=== PATIENT | female | born 1965 | race Caucasian/White ===

== ENCOUNTER → 2022-08-29 | Day surgery (SDC) | payer BC ==
--- NOTE | 2022-08-29 13:02 | RAD REPORT ---
EXAM DESCRIPTION: US - Breast Core BX w/US Guidance - 08/29/2022 10:47 am CLINICAL HISTORY: N63.10lateral right breast mass COMPARISON: Mammogram and ultrasound 08/21/2022 TECHNIQUE: The patient presents for ultrasound-guided biopsy of a previously detailed 5-6 mm lateral right breast mass. The ultrasound-guided core biopsy procedure, risks and alternatives were discussed with the patient i n detail. After answering all questions, both oral and written consent were obtained. Time out proced ure was performed. The patient had no contraindicated allergy or medication history. Patient was off 81 milligram aspirin therapy for 5 days or more. Preliminary imaging identified the a 5-6 mm hypoechoic right breast mass lateral 9 o'clock position. This is the correlate to the mammogram and ultrasound findings. The right breast was prepped and draped in the usual sterile fashion. From a(n) inferior approach, sk in and deeper tissues were anesthetized with 1% lidocaine. Under direct sonographic visualization a 1 4 gauge vacuum assisted core biopsy needle was advanced and placed at the margin of the mass. There w ere a total of 4 core biopsies obtained under direct sonographic guidance. The small mass became dist orted over the course of the procedure. There is a minimal amount of bleeding at the site that furthe r obscure the margins of this small mass. After the IV core biopsies were performed, follow-up images showed no clearly defined mass. This would support that the mass has been adequately sampled. At the conclusion of the procedure a localization clip was placed under sonographic guidance. No hematoma was seen and there is no progression of the minimal bleeding at the biopsy site. Hemostas is was obtained at the skin surface. Sterile bandage was placed over the puncture site. Post procedure care and precaution instructions were given to the patient. IMPRESSION: 1. Ultrasound-guided core biopsy was performed of the lateral right breast mass. All obt ained material was given to pathology for histologic assessment. 2. Post biopsy localization clip was placed under ultrasound guidance.
== END ==
LOC: DS 08:00
PROVIDERS: ATTEND Obstetrics & Gynecology
DX: C50.911 Malignant neoplasm of unspecified site of right female breast (principal); Z17.0 Estrogen receptor positive status [ER+]
CPT/HCPCS: 19083; 88305

== ENCOUNTER 2022-08-30 18:48 | Emergency (ER) | payer BC ==
--- OUTSIDE RECORDS SUMMARY | 2022-08-30 18:50 | XMS REPORT | Continuity of Care Document ---
:1965 Author Organization [facility] t Address [address] [place] [address] [address]. [address] [place] [address] Care Team Providers Name Role Phone Nando Craig MD Primary Care Physician Luke Truong Attending Clinician Unavailable Lab, Adc Fam Pob I Attending Clinician Unavailable Perla Flores Attending Clinician PERLA ASH Attending Clinician Unavailable KNOW, DOES_NOT Admitting Clinician Unavailable Payers Payer Name Policy Type Policy Number Effective Date Expiration Date S ource Problems Condition Condition Condition Status Onset Resolution Last Treating Co mments Source Name Details Category Date Date Treatment Clinician Date No known No known Disease Metho di active active st problems problems Hospit a l Allergies, Adverse Reactions, Alerts Allergy Allergy Status Severity Reaction(s) Onset Inactive Treating Comm ents Source Name Type Date Date Clinician No Known DA Active [facility] [place] No Known DA Active [facility] NO KNOWN Drug Active [facility] ALLERGIE [facility] [place] [facility] [place] Social History Social Habit Start Date Stop Date Quantity Comments Source Exposure to Yes [facility]-CoV-2 [facility] (event) Branch Tobacco use and 2019-03-11 2019-03-11 Smokeless tobacco [facility] exposure 00:00:00 00:00:00 non-user Sex Assigned [birth year] [facility] 00:00:00 00:00:00 Smoking Status Start Date Stop Date Source Unknown if ever smoked [facility] Never smoked tobacco [facility] Medications Ordered Filled Start Stop Current Ordering Indication Dosage Frequency Signature Comments Components Source Medication Medication Date Date Medication? Clinician (SIG) Name Name omega Yes Methodi 3-dha-epa-f 03-11 st emani oil 19:13: Hospita (FISH OIL) 58 l 1,000 mg (120 mg-180 mg) capsule esomeprazol Yes Method i e (NexIUM 03-11 24HR) 20 MG 19:13: Hospit a capsule 58 l metoprolol Yes Methodi loya-hydrochl 03-11 st orothiaz 19:13: Hospita 50-12.5 mg 58 l tablet extended release 24 hr BABY Yes Methodi ASPIRIN 03-11 st ORAL 19:13: Hospita 58 l norethindro Yes 5mg QD Take 5 mg M ethodi ne 7-[address] (AYGESTIN) 00:00: daily. Hospi ta 5 mg tablet 00 l rosuvastati Yes 10mg QD Take 10 mg Methodi n (CRESTOR) 7-[address] 10 MG 00:00: daily. Hospita tablet 00 l Procedures This patient has no known procedures. Plan of Care Planned Activity Planned Date Details Comments Source Future Scheduled 2022-08-30 COVID-19 VACCINE (#1) [facility] Test 18:50:19 [code = COVID-19 VACCINE (#1)] Future Scheduled 2022-08-30 Screening for [facility] Test 18:50:19 malignant neoplasm of cervix (procedure) [code = 343962578] Future Scheduled 2022-08-30 BREAST CANCER [facility] Test 18:50:19 SCREENING [code = BREAST CANCER SCREENING] Future Scheduled 2022-08-30 COLONOSCOPY SCREENING [facility] Test 18:50:19 [code = COLONOSCOPY SCREENING] Future Scheduled 2022-08-30 SHINGLES VACCINES (1 [facility] Test 18:50:19 of 2) [code = SHINGLES VACCINES (1 of 2)] Future Scheduled 2022-08-30 INFLUENZA VACCINE [facility] Test 18:50:19 [code = INFLUENZA VACCINE] Encounters Start End Encounter Admission Attending Care Care Encounter Source Date/Time Date/Time Type Type Clinicians Facility Department ID 2021-03-02 2021-03-02 [id number] [facility] 11:40:00 11:40:00 Mass, 77 [facility] 2020-04-20 2020-04-20 Laboratory Lab, [facility] Fam Pob I [facility] [id number] Univers 08:31:50 08:51:50 Only Perla Ash [facility] [id number] itbibi [facility] [id number] Day[place] as Professio [phone] Az dical nal [address] [place] [address] [facility] 2020-04-20 2020-04-20 Laboratory Lab, [facility] [id number] 08:31:50 08:51:50 Only [facility] Pob I Health [id number] [place] [id number] Professio [phone] nal [address] One 2020-04-20 2020-04-20 Outpatient R NILSA [facility] [id number] Univers 08:40:00 08:40:00 PERLA morrison [facility] Results Test Description Test Time Test Comments Results Result Comments Source ENDOMETRIUM,BIOPSY 2021-03-04 10:33:00 Test Item Value Reference Range Interpretation Comme nts ENDOMETRIUM,BIOPSY RUN DATE: (test code = 03/04/21 [facility] y PAGE 1 RUN TIME: 1935 Specimen Inquiry RUN USER: INTERFACE ENDOMETBX) PATIENT: DEBI SWAIN [facility] [id number] AGE/SX: 55/F ROOM: RE03/02/21REG DR: Luke Truong : 65 BED: DIS: STATUS: [facility] TLOC: SPEC #: [id number] RECD: 1 [facility] #: [id number] JUAN MANUEL: 03/02/21- SUBM DR: Luke Truong MD ENTERED: 0 03/02/21-144 SP TYPE: ENDOMETBX OTHR DR: ORDERED: LEVEL IV CODES: [id number] - ENDOMETRIUM, NO PROCEDURES : LEVEL IV (Incomplete) TISSUES: ENDOMETRIUM, NOS - ENDOMETRIAL CURETTINGS AND POLYP CLINICA L HISTORY 55 year old, abnormal uterine bleeding and polyp (wpd) FINAL DIAGNOSIS Endometrial curett ings and polyp: - polypoid endometrium with progestational changes - necrotic endometrium with pr ogestational changes CPT: 21165 [facility]/wpd GROSS DESCRIPTION ANATOMIC SOURCE OF TISSUE (per Requisition): Endometrial curettings and polyp The specimen is received in a formalin-filled container, l abeled with the patient's name and designated "endometrial curettings and polyp". The specimen consist s is a 4.0 cm aggregate of multiple rosa-pink to brown-hernandez soft tissues. The tissues are entirely submitted in A1 and A2. /wp d 03/02/21 Signed TrishaGilneha Womack 03/04/21 1033 END OF REPORT BASIC METABOLIC [id number] 11:19:00 Test Item Value Reference Range Interpretation Comments SODIUM (test code = NA) 143 mEq/L 135-145 N POTASSIUM (test code = K) 5.0 mEq/L 3.5-5.0 N CHLORIDE (test code = CL) 107 mEq/L 100-115 N CARBON DIOXIDE (test code = CO2) 27 mEq/L 22-31 N ANION GAP (test code = GAP) 14.20 10-20 N GLUCOSE (test code = GLU) 90 mg/dL 65-110 N BLOOD UREA NITROGEN (test code = 14 mg/dL 7-18 N BUN) GLOMERULAR FILTRATION RATE (test 65 ml/min >60 N code = GFR) CREATININE (test code = CREAT) 0.9 mg/dL 0.5-1.0 N CALCIUM (test code = CA) 8.6 mg/dL 8.4-10.2 N HCG SERUM [id number] 11:17:00 Test Item Value Reference Range Interpretation Comments HCG SERUM QUAL (test code = HCGQL) NEGATIVE HGB [id number] 11:07:00 Test Item Value Reference Range Interpretation Comments HEMOGLOBIN (test code = HGB) 15.0 g/dL 10.1-13.8 H HEMATOCRIT (test code = HCT) 44.5 % 32.5-41.8 H
[2022-08-30] MEDS ORDERED: KETOROLAC 30 MG/ML INJ ONE (20:21)
[2022-08-30 20:49] LABS: Absolute Lymphocytes (CBC) 2.2 K/uL (0.7-4.9); Hematocrit 40.9 % (36.0-45.0); Lymphocytes % 21.7 % (15.3-44.8); MCV 88.2 fL (80-100); MPV 8.9 fL (7.6-11.3); RBC Red Blood Cell Count 4.64 M/uL (3.86-4.86)
--- NOTE | 2022-08-30 20:52 | RAD REPORT ---
EXAM DESCRIPTION: RAD - Chest Single View - 08/30/2022 8:21 pm CLINICAL HISTORY: CHEST PAIN Chest pain. COMPARISON: No comparisons FINDINGS: Portable technique limits examination quality. The lungs are emphysematous but grossly clear. The heart is normal in size. No displaced fractures. IMPRESSION: No acute intrathoracic process suspected.
[2022-08-30 21:03] LABS: Potassium 3.6 mmol/L (3.5-5.1); Troponin High Sensitivity 5.8 pg/mL (<58.9)
--- NOTE | 2022-08-30 23:21 | ER ---
Nurse's Notes [facility] Name: Fabiana Mckenzie Age: 56 yrs Sex: Female : 1965 Arrival Date: 08/30/2022 Time: 18:48 Bed 2 Private MD: Diagnosis: Chest pain, unspecified Presentation: 08/30 19:16 Chief complaint: Patient states: It hurts to breath and it hurts on the side of my left kd3 breast. It started earlier today around lunchtime. It hurt a lot when the doctor was pushing on it. Coronavirus screen: Vaccine status: Patient reports receiving the 2nd dose of the covid vaccine. Ebola Screen: No symptoms or risks identified at this time. Initial Sepsis Screen: Does the patient meet any 2 criteria? No. Patient's initial sepsis screen is negative. Does the patient have a suspected source of infection? No. Patient's initial sepsis screen is negative. Risk Assessment: Do you want to hurt yourself or someone else? Patient reports no desire to harm self or others. Onset of symptoms was August 30, 2022. 19:16 Method Of Arrival: Ambulatory kd3 19:16 Acuity: KRYSTEN 3 kd3 Triage Assessment: 19:19 General: Appears uncomfortable, Behavior is calm, cooperative. Pain: Complains of pain kd3 in left lateral posterior chest and left lateral anterior chest. Neuro: Level of Consciousness is awake, alert, obeys commands, Oriented to person, place, time, situation. Cardiovascular: Patient's skin is warm and dry. Historical: - Allergies: 19:19 No Known Allergies; kd3 - Immunization history:: Adult Immunizations up to date. - Social history:: Smoking status: Patient denies any tobacco usage or history of. - Family history:: not pertinent. Screenin:[address] [facility] ED Fall Risk Assessment (Adult) History of falling in the last 3 months, mb9 including since admission No falls in past 3 months (0 pts) Confusion or Disorientation No (0 pts) Intoxicated or Sedated No (0 pts) Impaired Gait No (0 pts) Mobility Assist Device Used No (0 pt) Altered Elimination No (0 pt) Score/Fall Risk Level 0 - 2 = Low Risk Oriented to surroundings, Maintained a safe environment, Educated pt \T\ family on fall prevention, incl call for assistance when getting out of bed. Abuse screen: Denies threats or abuse. Nutritional screening: No deficits noted. Tuberculosis screening: No symptoms or risk factors identified. Assessment: 20:35 General: Appears uncomfortable, Behavior is calm, cooperative, appropriate for age. mb9 Pain: Complains of pain in chest Pain radiates to left arm and left shoulder Pain currently is 7 out of 10 on a pain scale. Quality of pain is described as pressure, Pain began this morning Aggravated by increased activity, repositioning, weight bearing. Neuro: Garner Agitation-Sedation Scale (RASS): 0 - Alert and Calm Level of Consciousness is awake, alert, obeys commands, Oriented to person, place, time, situation, Appropriate for age. Cardiovascular: Heart tones S1 S2 present Capillary refill < 3 seconds is brisk Patient's skin is warm and dry. Rhythm is regular. Respiratory: Airway is patent Respiratory effort is even, unlabored, Respiratory pattern is regular, symmetrical. GI: Abdomen is flat, non-distended, Bowel sounds present X 4 quads. Abd is soft and non tender X 4 quads. : No signs and/or symptoms were reported regarding the genitourinary system. EENT: No signs and/or symptoms were reported regarding the EENT system. Derm: Skin is pink, warm \T\ dry. Musculoskeletal: Range of motion: intact in all extremities. 21:19 Reassessment: No changes from previously documented assessment. Patient and/or family mb9 updated on plan of care and expected duration. Pain level reassessed. Patient is alert, oriented x 3, equal unlabored respirations, skin warm/dry/pink. Patient states feeling better. Patient states symptoms have improved. 22:05 Reassessment: No changes from previously documented assessment. Patient and/or family mb9 updated on plan of care and expected duration. Pain level reassessed. Patient is alert, oriented x 3, equal unlabored respirations, skin warm/dry/pink. Patient states feeling better. Patient states symptoms have improved. Vital Signs: 19:16 BP 163 / 88; Pulse 96; Resp 18; Temp 97.7(TE); Pulse Ox 100% ; Weight 72.57 kg; Height kd3 5 ft. 2 in. (157.48 cm); Pain 7/10; 20:37 BP 156 / 86; Pulse 87; Resp 22; Pulse Ox 100% on R/A; Pain 7/10; mb9 21:52 BP 140 / 75; Pulse 76; Resp 20; Pulse Ox 97% on R/A; mb9 23:04 BP 144 / 86; Pulse 76; Resp 16; Pulse Ox 98% on R/A; mb9 23:30 BP 141 / 80; Pulse 77; Resp 18; Pulse Ox 95% on R/A; Pain 0/10; kl 19:16 Body Mass Index 29.26 (72.57 kg, 157.48 cm) kd3 ED Course: 18:48 Patient arrived in ED. am2 19:09 Rai Garcia MD is Attending Physician. bs3 19:19 Triage completed. kd3 19:19 Arm band placed on left wrist. kd3 20:00 Placed in gown. Bed in low position. Call light in reach. Side rails up X 1. Client mb9 placed on continuous cardiac and pulse oximetry monitoring. NIBP monitoring applied. monitoring manager on. 20:18 Melina Tello, RN is Primary Nurse. jh5 20:18 Marysol Douglas, CHILO is Primary Nurse. mb9 20:23 XRAY Chest (1 view) In Process Unspecified. EDMS 20:25 Inserted saline lock: 20 gauge in right forearm, using aseptic technique. Blood mb9 collected. 20:25 EKG done, by ED staff, reviewed by Rai Garcia MD. mb9 20:35 Basic Metabolic Panel Sent. mb9 20:35 CBC with Diff Sent. mb9 20:35 Troponin HS Sent. mb9 20:38 No provider procedures requiring assistance completed. mb9 23:31 IV discontinued, intact, bleeding controlled, No redness/swelling at site. Pressure kl dressing applied. 23:31 Patient maintains SpO2 saturation greater than 95% on room air. kl Administered Medications: 20:35 Drug: Ketorolac 15 mg Route: IVP; Site: right forearm; mb9 22:38 Follow up: Response: Pain is decreased mb9 Medication: 20:38 VIS not applicable for this client. mb9 Outcome: 23:20 Discharge ordered by . bs3 23:31 Discharged to home ambulatory, with family. kl 23:31 Condition: stable 23:31 Discharge instructions given to patient, Instructed on discharge instructions, follow up and referral plans. Demonstrated understanding of instructions, follow-up care. 23:31 Patient left the ED. kl Signatures: Dispatcher [employer] EDEliane Dolan, RN RN Radha Jason am2 Melina Tello RN RN jh5 Aylin Gomez RN RN kd3 Rai Garcia MD MD bs3 Marysol Douglash, RN RN mb9
--- NOTE | 2022-08-30 23:21 | EDPHYS ---
Physician Documentation [facility] Name: Fabiana Mckenzie Age: 56 yrs Sex: Female : 1965 Arrival Date: 08/30/2022 Time: 18:48 Bed 2 Private MD: ED Physician Rai Garcia HPI: 08/30 19:20 This 56 yrs old Female presents to ER via Ambulatory with complaints of Chest bs3 Pain. 19:20 She has a history of hypertension presents with left-sided sharp chest pain it does bs3 radiate toward her left neck she does not have associated nausea vomiting sweating no numbness tingling or weakness in her extremities she has not taken anything for it she notes that it is worsened with position and taking a deep breath but does not have associated shortness of breath she notes that she did get a right-sided breast biopsy yesterday she has never had this pain before. Historical: - Allergies: 19:19 No Known Allergies; kd3 - Immunization history:: Adult Immunizations up to date. - Social history:: Smoking status: Patient denies any tobacco usage or history of. - Family history:: not pertinent. ROS: 19:22 Constitutional: Negative for fever, chills Eyes: Negative for injury, pain, redness, bs3 and discharge, ENT: Negative for injury, pain, and discharge, Respiratory: Negative for shortness of breath, cough, wheezing Abdomen/GI: Negative for abdominal pain, nausea, vomiting, diarrhea Back: Negative for injury and pain, : Negative for injury, bleeding, discharge, and swelling, MS/Extremity: Negative for injury and deformity, Skin: Negative for injury, rash, and discoloration, Neuro: Negative for headache, weakness, numbness, tingling, and seizure, Psych: Negative for depression, anxiety, suicide ideation, homicidal ideation, and hallucinations. Exam: 19:22 Constitutional: This is a well developed, well nourished patient who is awake, alert, bs3 and in no acute distress. Head/Face: Normocephalic, atraumatic. Eyes: Pupils equal round and reactive to light, extra-ocular motions intact. Lids and lashes normal. ENT: mmm, no posterior phyarngeal erythema Neck: Trachea midline, no thyromegaly, no neck stiffness, no bruit, no tenderness to palpation Chest/axilla: Normal chest wall appearance and motion. Left-sided anterior chest wall tenderness, no lesions are appreciated. Cardiovascular: Regular rate and rhythm with a normal S1 and S2. symmetric pulses in upper extremities Respiratory: Lungs have equal breath sounds bilaterally, clear to auscultation, no respiratory distress Abdomen/GI: Soft, non-tender, no rebound or guarding Skin: Warm, dry with normal turgor. Normal color with no rashes, no lesions, and no evidence of cellulitis. MS/ Extremity: Pulses equal, no cyanosis. Neurovascular intact. Full, normal range of motion. Neuro: Awake and alert, GCS 15, oriented to person, place, time, and situation. Cranial nerves II-XII grossly intact. Motor strength 5/5 in all extremities. Sensory grossly intact. Vital Signs: 19:16 BP 163 / 88; Pulse 96; Resp 18; Temp 97.7(TE); Pulse Ox 100% ; Weight 72.57 kg; Height kd3 5 ft. 2 in. (157.48 cm); Pain 7/10; 20:37 BP 156 / 86; Pulse 87; Resp 22; Pulse Ox 100% on R/A; Pain 7/10; mb9 21:52 BP 140 / 75; Pulse 76; Resp 20; Pulse Ox 97% on R/A; mb9 23:04 BP 144 / 86; Pulse 76; Resp 16; Pulse Ox 98% on R/A; mb9 23:30 BP 141 / 80; Pulse 77; Resp 18; Pulse Ox 95% on R/A; Pain 0/10; kl 19:16 Body Mass Index 29.26 (72.57 kg, 157.48 cm) kd3 MDM: 19:09 Patient medically screened. bs3 19:23 Differential diagnosis: acute myocardial infarction, acute pericarditis, anxiety, bs3 coronary artery disease chest wall pain, Pneumothorax, considered aortic dissection but she has normal symmetric pulses bilaterally no neurologic deficits. HEART Score: History: Slightly Suspicious (0), ECG: Normal (0), Age: > 45 and < 65 years (1), Risk Factors: 1 or 2 risk factors (1), [Hypertension] Troponin: < or = 1 x Normal Limit (0), Total Score = 2. Data reviewed: vital signs, nurses notes, radiologic studies, plain films. 19:23 Consideration of Admission/Observation. Independent interpretation of the following bs3 test(s) in the Emergency Department EKG: See my EKG interpretation above. Test considered but Not performed: CT: to eval for aortic dissection but her exam was consistent with msk and she was well appearing. . 19:28 ED course: ECG normal sinus rhythm at [address] elevations or depressions QTC 423 as bs3 read by myself at 1924. 23:19 Response to treatment: the patient's symptoms have markedly improved after treatment. bs3 ED course: pt improced, xr negative for pneumothorax as read by myself. ED course: trop normal, given duration of symptoms >12 hours, not consistent with acs, given response to toradol, likely msk pain. . 08/30 19:20 Order name: Basic Metabolic Panel; Complete Time: 23:18 bs3 08/30 19:20 Order name: CBC with Diff; Complete Time: 23:18 bs3 08/30 19:20 Order name: Troponin HS; Complete Time: 23:18 bs3 08/30 19:20 Order name: XRAY Chest (1 view); Complete Time: 23:18 bs3 08/30 19:20 Order name: EKG; Complete Time: 19:21 bs3 08/30 19:20 Order name: Cardiac monitoring; Complete Time: 20:15 bs3 08/30 19:20 Order name: EKG - Nurse/Tech; Complete Time: 19:25 bs3 08/30 19:20 Order name: IV Saline Lock; Complete Time: 20:35 bs3 08/30 19:20 Order name: Labs collected and sent; Complete Time: 20:35 bs3 08/30 19:20 Order name: O2 Per Protocol; Complete Time: 20:15 bs3 08/30 19:20 Order name: O2 Sat Monitoring; Complete Time: 20:15 bs3 Administered Medications: 20:35 Drug: Ketorolac 15 mg Route: IVP; Site: right forearm; mb9 22:38 Follow up: Response: Pain is decreased mb9 Disposition Summary: 08/30/22 23:20 Discharge Ordered Location: Home bs3 Problem: new bs3 Symptoms: have improved bs3 Condition: Stable bs3 Diagnosis - Chest pain, unspecified bs3 Followup: bs3 - With: Private Physician - When: 2 - 3 days - Reason: Re-evaluation by your physician Discharge Instructions: - Discharge Summary Sheet bs3 - Nonspecific Chest Pain, Adult bs3 Forms: - Medication Reconciliation Form bs3 - Thank You Letter bs3 - Antibiotic Education bs3 - Prescription Opioid Use bs3 Signatures: Dispatcher [employer] Aylin Nice RN RN kd3 Rai Garcia MD MD bs3 Marysol Douglas RN RN mb9
[2022-08-30 23:48] VITALS: TEMP 97.7
[2022-08-30 23:53] VITALS: BP 141/80; O2SAT 95
== END 2022-08-30 23:31 | disposition home or self-care (01) ==
LOC: ER 18:48
DX: R07.89 Other chest pain (principal)
CPT/HCPCS: 36415; 71045; 80048; 84484; 85025